=== PATIENT | male | born 1985 | race Caucasian/White ===

== ENCOUNTER 2025-02-10 13:59 | Emergency (ER) | payer BC, SELFPAY ==
[2025-02-10 14:01] VITALS: BP 161/110
[2025-02-10 16:33] LABS: Urine Albumin Negative (Neg - Trace); Urine Bilirubin Negative (Negative); Urine Character Clear (Clear); Urine Color Yellow; Urine Glucose Negative (Negative); Urine Ketone Negative (Negative); Urine Leukocyte Negative (Negative); Urine Nitrite Negative (Negative); Urine Occult Blood Negative (Negative); Urine Urobilinogen Negative (Neg - 1+)
--- NOTE | 2025-02-10 16:53 | ED.GENMED ---
History of Present Illness
General
Chief Complaint: Male Genito-Urinary Symptoms
Source: patient
Exam Limitations: none
Time Seen by Provider: 02/10/25 16:05
Nursing documentation reviewed up to this point in time: agreed with
History of Present Illness
History of Present Illness:
39-year-old male presenting to the emergency department today with concerns of swelling to the left testicle. Noticed this over the past few weeks but noticed it worsened over the past day or 2. Denies any significant urinary symptoms or
additional concerns.
Review of Systems
Review of Systems
Allergies reviewed?: Yes
All Other Systems: ROS reviewed and negative except as documented in HPI and ROS
Phy Exam
Physical Exam
Physical Exam:
GENERAL: Alert , in no apparent distress
EYE: pupils equal and reactive
NECK: Supple, no significant adenopathy.
ENT: o/p clr, mmm.
CARDIAC: Regular rate and rhythm .
LUNGS: Clear breath sounds bilaterally, no acute respiratory distress, no wheezes/rales/rhonchi
ABDOMEN: Swelling to the epididymis otherwise normal scrotal examination. No redness or warmth no fluctuance or induration. Soft, without focal tenderness, no r/g, no cvat
NEUROLOGICAL: Alert and oriented, no focal neuro deficits
SKIN: Warm and dry, skin intact.
MUSCULOSKELETAL: No edema, well perfused.
PSYCH: Normal and appropriate interaction.
Course
Orders/Labs/Results
Orders:
Orders
02/10/25 14:04
US Scrotum Urgent
Comment:
Reason For Exam: lump on left testicle
02/10/25 16:25
Urinalysis Reflex To Culture Urgent
Date Specimen was Collected: 02/10/25
Time Specimen was Collected: 16:17
02/10/25 16:52
Cephalexin Monohydrate [Keflex] 500 mg PO NOW STA
Vital Signs
Initial and Last Documented VS:
Initial Vital Signs
Temp Pulse Resp BP Pulse Ox
98.8 F 85 17 161/110 99
02/10/25 14:01 02/10/25 14:01 02/10/25 14:01 02/10/25 14:01 02/10/25 14:01
Last Documented Vital Signs
Temp Pulse Resp BP Pulse Ox
98.8 F 85 17 161/110 99
02/10/25 14:01 02/10/25 14:01 02/10/25 14:01 02/10/25 14:01 02/10/25 14:01
MDM/Problems Addressed
MDM/Problems Addressed:
39-year-old male presenting to the emergency department today with concerns of a lump on his left testicle. Here hypertensive otherwise vital signs are normal. Urinalysis without emergent findings. Ultrasound showing epididymoorchitis on the left
side. This is likely with the patient's feeling palpation. Started on antibiotics. Very low risk for STDs. Return precautions given. Advised for close outpatient follow-up.
*Critical Care Note
Total Time (30-74mins, 75-104mins- exclusive of procedures): Not Applicable
ED Attending Note
-
Portions of this chart may have been created with voice recognition software.� Occasional wrong word or��sound alike� substitutions may have occurred due to the inherent limitations of voice recognition software.
Discharge Plan
Departure
Patient Disposition: Home (Routine Discharge)
Date of Disposition: 02/10/25
Time of Disposition: 16:55
Patient with high blood pressure during this ER visit?: No
Condition: Good
Covid-19: Not Applicable
Discharge Problem:
Acute epididymo-orchitis
Referrals:
Stalin Monzon PA-C [Family Provider] -
Activity Restrictions/Additional Instructions:
You came to the emergency department today with concerns of scrotal swelling. You are found to have epididymoorchitis. Please follow-up closely with your primary care doctor or urology for further assessment. Return for any worsening, new or
concerning symptoms.
Interventions
Interventions:
*Risk Screen - Suicide Last Done: 02/10/25 14:03
*General Assessment Last Done: 02/10/25 14:03
*Neglect/Abuse Screening Last Done: 02/10/25 14:03
*ED- Fall Risk Assessment Last Done: 02/10/25 16:06
*ED COVID-19 Vaccine History Last Done: 02/10/25 14:03
ED-Male Genitourinary Assessment Last Done: 02/10/25 16:06
Discharge Date and Time
Print Language: KITTITIAN
== END 2025-02-10 17:18 | disposition home or self-care (01) ==
LOC: EMR 13:59
PROVIDERS: Physician Assistant; EMERGENCY PHYSICIAN Student in an Organized Health Care Education/Training Program; FAMILY PHYSICIAN Physician Assistant
DX: N45.3 Epididymo-orchitis (principal)
CPT/HCPCS: 99284; 76870; 81003; 93976